=== PATIENT | female | born 1980 | race Caucasian/White ===

== ENCOUNTER 2020-08-06 10:38 | Emergency (ER) | payer OTHER, SELFPAY ==
[2020-08-06 10:58] VITALS: BP 131/80; PULSE 120; RESP 16; TEMP 36.5; O2SAT 98; BMI 27.8
--- NOTE | 2020-08-06 10:58 | ED_ITS ---
HPI - General Adult General Chief complaint: Eye Problems <Shellie Hunter NP - Last Filed: 08/06/20 11:05> Stated complaint: blurred vision,chest pain several weeks <Shellie Hunter NP - Last Filed: 08/06/20 11:05> Time Seen by Provider: 08/06/20 10:58 <Shellie Hunter NP - Last Filed: 08/06/20 11:05> Related Data Home medications: Previous Rx's Medication Instructions Recorded hydroxyzine HCl 50 mg PO TID PRN #14 tab 08/06/20 metoprolol succinate 12.5 mg PO DAILY #20 tab 08/06/20 <Shellie Hunter NP - Last Filed: 08/06/20 11:05> Allergies/adverse reactions: Allergies Allergy/AdvReac Type Severity Reaction Status Date / Time Iodinated Contrast Media AdvReac Mild ITCHINESS Unverified 04/19/20 15:32 [IV CONTRAST] AND HIVES; PREMEDICATE FUTURE SCANS <Shellie Hunter NP - Last Filed: 08/06/20 11:05> [facility] Past Medical History Medical History: Medical History CML (chronic myeloid leukemia) Migraine <Shellie Hunter NP - Last Filed: 08/06/20 11:05> Surgical History: Surgical History Hx of cholecystectomy <Shellie Hunter NP - Last Filed: 08/06/20 11:05> Social History Social History: Social History Alcohol intake: never Smoking Status: Never smoker <Shellie Hunter NP - Last Filed: 08/06/20 11:05> Physical Exam Vital Signs: Vital Signs: Last Vital Signs Temp 99.5 F 08/06/20 16:36 Pulse 126 H 08/06/20 16:36 Resp 18 08/06/20 16:36 BP 115/69 08/06/20 16:36 Pulse Ox 96 08/06/20 16:36 Body Mass Index 27.8 <Shellie Hunter NP - Last Filed: 08/06/20 11:05> Vital Signs: Last Vital Signs Temp 99.5 F 08/06/20 16:36 Pulse 126 H 08/06/20 16:36 Resp 18 08/06/20 16:36 BP 115/69 08/06/20 16:36 Pulse Ox 96 08/06/20 16:36 Body Mass Index 27.8 <Nancy Singh MD - Last Filed: 08/06/20 20:31> Course Course Course Narrative: 1059-This is a rapid medical exam. 40 yo female with past medical history of CML not on treatment woke up with left eye central eye blurriness. NO SHELDON. Last vision normal 430am. Left sided chest pain x 1 month, intermittent. No SOB, cough, dizziness. Also having anxiety, depression, no SI. Will check EKG, CXR. Deferred labs until seen by primary provider. Deferred additional HPI, ROS, and PE to primary provider. <Shellie Hunter NP - Last Filed: 08/06/20 11:05> I received sign-out from Dr. Anna. Patient remains tachycardic between 110 and 120 despite 3 L of fluid and 2 mg of Ativan. Patient is not anxious at this time. I discussed the patient an EKG with Dr. Booth, at this time he advised that we could go either way, start the patient on low-dose metoprolol versus having her follow-up with Cardiology and primary care physician. I discussed the above-mentioned with the patient, patient states that she is still having palpitations, a lot of anxiety, therefore, the patient I decided that we are going to go ahead and start her on low-dose metoprolol. Otherwise, patient is stable and asymptomatic <Nancy Singh MD - Last Filed: 08/06/20 20:31> Medical Decision Making Lab Data Result diagrams: : 08/06/20 15:14 08/06/20 15:14 <Shellie Hunter NP - Last Filed: 08/06/20 11:05> Labs: Lab Results 08/06/20 08/06/20 08/06/20 Range/Units 14:03 15:14 15:14 WBC 413.1 H* (4.8-10.8) X10*3/uL RBC 3.07 L (4.20-5.50) X10*6/uL Hgb 8.2 L (12.0-16.0) g/dl Hct 23.3 L (37-47) % MCV 75.9 L (80-98) fL MCH 26.7 L (27.0-33.0) pg MCHC 35.2 H (31.0-35.0) g/dl RDW 18.5 H (11.0-16.0) % Plt Count 407 H (160-400) X10*3/uL MPV 9.9 (9.4-12.3) fL Immature Gran % (Auto) Cancelled Neut % (Auto) Cancelled Lymph % (Auto) Cancelled Gooding % (Auto) Cancelled Eos % (Auto) Cancelled Baso % (Auto) Cancelled Lymph # (Auto) Cancelled Gooding # (Auto) Cancelled Eos # (Auto) Cancelled Baso # (Auto) Cancelled Abs Immat Gran (auto) Cancelled Absolute Neuts (auto) Cancelled Absolute Nucleated RBC 1.600 H (0.0-0.012) X10*3/uL Nucleated RBC % (auto) 0.4 H (0.0-0.2) /100WBC D-Dimer NG/ML Sodium (135-145) mmol/L Potassium (3.3-5.1) mmol/l Chloride (96-108) mmol/L Carbon Dioxide (22-29) mmol/L Anion Gap (12-20) BUN (9-16) mg/dL Creatinine (0.5-1.4) mg/dL Estim Creat Clear Calc Estimated GFR Random Glucose (60-115) mg/dL Calcium (8.4-10.2) mg/dL Total Bilirubin (0.0-1.0) mg/dL AST (5-31) U/L ALT (0-31) U/L Alkaline Phosphatase (39-117) U/L Troponin I High Sens (<3.5-17.0) ng/L Total Protein (6.5-8.0) g/dL Albumin (3.5-5.0) g/dL TSH (0.32-4.0) uIU/mL Beta HCG, Quant < 2 mIU/mL Urine Test NEGATIVE (NEGATIVE) 01/04/21 01/04/21 01/04/21 Range/Units 15:14 15:14 18:58 WBC (4.8-10.8) X10*3/uL RBC (4.20-5.50) X10*6/uL Hgb (12.0-16.0) g/dl Hct (37-47) % MCV (80-98) fL MCH (27.0-33.0) pg MCHC (31.0-35.0) g/dl RDW (11.0-16.0) % Plt Count (160-400) X10*3/uL MPV (9.4-12.3) fL Immature Gran % (Auto) Neut % (Auto) Lymph % (Auto) Gooding % (Auto) Eos % (Auto) Baso % (Auto) Lymph # (Auto) Gooding # (Auto) Eos # (Auto) Baso # (Auto) Abs Immat Gran (auto) Absolute Neuts (auto) Absolute Nucleated RBC (0.0-0.012) X10*3/uL Nucleated RBC % (auto) (0.0-0.2) /100WBC D-Dimer 209 NG/ML Sodium 137 (135-145) mmol/L Potassium 4.2 (3.3-5.1) mmol/l Chloride 101 (96-108) mmol/L Carbon Dioxide 28 (22-29) mmol/L Anion Gap 12 (12-20) BUN 7 L (9-16) mg/dL Creatinine 0.91 (0.5-1.4) mg/dL Estim Creat Clear Calc 76.2 Estimated GFR > 60 Random Glucose 92 (60-115) mg/dL Calcium 9.1 (8.4-10.2) mg/dL Total Bilirubin 0.3 (0.0-1.0) mg/dL AST 14 (5-31) U/L ALT 6 (0-31) U/L Alkaline Phosphatase 67 (39-117) U/L Troponin I High Sens < 3.5 (<3.5-17.0) ng/L Total Protein 6.7 (6.5-8.0) g/dL Albumin 4.1 (3.5-5.0) g/dL TSH 2.43 (0.32-4.0) uIU/mL Beta HCG, Quant mIU/mL Urine Test (NEGATIVE) <Shelliebryan Hunter, LOCK TENDER CHIEF OPERATOR - Last Filed: 08/06/20 11:05> Lab Results 08/06/20 08/06/20 08/06/20 Range/Units 14:03 15:14 15:14 WBC 413.1 H* (4.8-10.8) X10*3/uL RBC 3.07 L (4.20-5.50) X10*6/uL Hgb 8.2 L (12.0-16.0) g/dl Hct 23.3 L (37-47) % MCV 75.9 L (80-98) fL MCH 26.7 L (27.0-33.0) pg MCHC 35.2 H (31.0-35.0) g/dl RDW 18.5 H (11.0-16.0) % Plt Count 407 H (160-400) X10*3/uL MPV 9.9 (9.4-12.3) fL Immature Gran % (Auto) Cancelled Neut % (Auto) Cancelled Lymph % (Auto) Cancelled Gooding % (Auto) Cancelled Eos % (Auto) Cancelled Baso % (Auto) Cancelled Lymph # (Auto) Cancelled Gooding # (Auto) Cancelled Eos # (Auto) Cancelled Baso # (Auto) Cancelled Abs Immat Gran (auto) Cancelled Absolute Neuts (auto) Cancelled Absolute Nucleated RBC 1.600 H (0.0-0.012) X10*3/uL Nucleated RBC % (auto) 0.4 H (0.0-0.2) /100WBC D-Dimer NG/ML Sodium (135-145) mmol/L Potassium (3.3-5.1) mmol/l Chloride (96-108) mmol/L Carbon Dioxide (22-29) mmol/L Anion Gap (12-20) BUN (9-16) mg/dL Creatinine (0.5-1.4) mg/dL Estim Creat Clear Calc Estimated GFR Random Glucose (60-115) mg/dL Calcium (8.4-10.2) mg/dL Total Bilirubin (0.0-1.0) mg/dL AST (5-31) U/L ALT (0-31) U/L Alkaline Phosphatase (39-117) U/L Troponin I High Sens (<3.5-17.0) ng/L Total Protein (6.5-8.0) g/dL Albumin (3.5-5.0) g/dL TSH (0.32-4.0) uIU/mL Beta HCG, Quant < 2 mIU/mL Urine Test NEGATIVE (NEGATIVE) 08/06/20 08/06/20 08/06/20 Range/Units 15:14 15:14 18:58 WBC (4.8-10.8) X10*3/uL RBC (4.20-5.50) X10*6/uL Hgb (12.0-16.0) g/dl Hct (37-47) % MCV (80-98) fL MCH (27.0-33.0) pg MCHC (31.0-35.0) g/dl RDW (11.0-16.0) % Plt Count (160-400) X10*3/uL MPV (9.4-12.3) fL Immature Gran % (Auto) Neut % (Auto) Lymph % (Auto) Gooding % (Auto) Eos % (Auto) Baso % (Auto) Lymph # (Auto) Gooding # (Auto) Eos # (Auto) Baso # (Auto) Abs Immat Gran (auto) Absolute Neuts (auto) Absolute Nucleated RBC (0.0-0.012) X10*3/uL Nucleated RBC % (auto) (0.0-0.2) /100WBC D-Dimer 209 NG/ML Sodium 137 (135-145) mmol/L Potassium 4.2 (3.3-5.1) mmol/l Chloride 101 (96-108) mmol/L Carbon Dioxide 28 (22-29) mmol/L Anion Gap 12 (12-20) BUN 7 L (9-16) mg/dL Creatinine 0.91 (0.5-1.4) mg/dL Estim Creat Clear Calc 76.2 Estimated GFR > 60 Random Glucose 92 (60-115) mg/dL Calcium 9.1 (8.4-10.2) mg/dL Total Bilirubin 0.3 (0.0-1.0) mg/dL AST 14 (5-31) U/L ALT 6 (0-31) U/L Alkaline Phosphatase 67 (39-117) U/L Troponin I High Sens < 3.5 (<3.5-17.0) ng/L Total Protein 6.7 (6.5-8.0) g/dL Albumin 4.1 (3.5-5.0) g/dL TSH 2.43 (0.32-4.0) uIU/mL Beta HCG, Quant mIU/mL Urine Test (NEGATIVE) <Nancy Singh MD - Last Filed: 08/06/20 20:31> Discharge Plan Discharge Clinical Impression: Anxiety, Regular sinus tachycardia <Shellie Hunter NP - Last Filed: 08/06/20 11:05> Patient Disposition: Home, Self-Care <Shellie Hunter NP - Last Filed: 08/06/20 11:05> Instructions: Anxiety (ED), Tachycardia (ED) <Shellie Hunter NP - Last Filed: 08/06/20 11:05> Additional Instructions: Please follow-up with cardiology and with Dr. Zepeda as scheduled. Please follow-up with your primary care physician tomorrow. If you have any worsening or new symptoms, please return to the emergency room or call 911 <Shellie Hunter NP - Last Filed: 08/06/20 11:05> Prescriptions: New hydroxyzine HCl 50 mg tablet 50 mg PO TID PRN (Reason: nausea and vomiting) Qty: 14 RF: 0 metoprolol succinate 25 mg tablet extended release 24 hr 12.5 mg PO DAILY Qty: 20 RF: 0 <Shellie Hunter NP - Last Filed: 08/06/20 11:05> Referrals: Angel Booth MD [Physician] - 2 days <Shellie Hunter NP - Last Filed: 08/06/20 11:05> Stand Alone Forms: Work/School Release <Shellie Hunter NP - Last Filed: 08/06/20 11:05>
--- NOTE | 2020-08-06 11:05 | ECG_ITS ---
Test Reason : CP Blood Pressure : / mmHG Vent. Rate : 121 BPM Atrial Rate : 121 BPM P-R Int : 140 ms QRS Dur : 070 ms QT Int : 308 ms P-R-T Axes : 047 020 026 degrees QTc Int : 437 ms Sinus tachycardia Otherwise normal ECG No previous ECGs available Referred By: Shellie Hunter Electronically Signed By:Angel Booth
--- NOTE | 2020-08-06 11:05 | XR_ITS ---
EXAMINATION: XR CHEST CLINICAL INFORMATION: Chest pain. COMPARISON: None TECHNIQUE: 2 views of the chest were obtained. FINDINGS: The lungs are well-expanded and clear of acute process. There is punctate 3 mm nodule right lower lobe. The heart size and pulmonary vascularity is normal. No gross bony abnormality seen. XR/XR chest 2V IMPRESSION: Unremarkable chest examination.
[2020-08-06 14:11] LABS: UPreg QC Valid YES; Urine Pregnancy NEGATIVE (NEGATIVE)
--- NOTE | 2020-08-06 15:08 | ED.GENADULT ---
HPI - General Adult General Chief complaint: Eye Problems Stated complaint: blurred vision,chest pain several weeks Time Seen by Provider: 08/06/20 10:58 Source: patient Mode of arrival: ambulatory Limitations: no limitations History of Present Illness HPI narrative: This is a 40 years old female who presented to the ED with a chief complaint of chest pain for weeks and the left eye blurred vision. She does have a history of migraines headache is sometimes she gets problem with the left eye. She denies any fever chills shortness of breath chest pain is not radiated Onset (ago): week(s) Location: eyes (Left eye) and chest Radiation: non-radiation Severity: mild Pain Consistency: constant Exacerbating factors: none Related Data Allergies Allergy/AdvReac Type Severity Reaction Status Date / Time Iodinated Contrast Media AdvReac Mild ITCHINESS Unverified 04/19/20 15:32 [IV CONTRAST] AND HIVES; PREMEDICATE FUTURE SCANS Review of Systems Review of Systems: Yes all other systems are reviewed and are negative Eyes: Eyes: Reports as per HPI ENT: Reports system reviewed and no additional complaints, except as documented Respiratory: Respiratory: Reports no additional respiratory complaints Gastrointestinal: Gastrointestinal: Reports no additional gastrointestinal complaints Musculoskeletal: Musculoskeletal: Reports no additional musculoskeletal complaints PMFSH Past Medical History Medical History CML (chronic myeloid leukemia) Migraine Surgical History Hx of cholecystectomy Social History Social History Alcohol intake: never Smoking Status: Never smoker Physical Exam Vital Signs: Vital Signs: Last Vital Signs Temp 99.5 F 08/06/20 16:36 Pulse 126 H 08/06/20 16:36 Resp 18 08/06/20 16:36 BP 115/69 08/06/20 16:36 Pulse Ox 96 08/06/20 16:36 Body Mass Index 27.8 Const: General: cooperative and healthy appearing Orientation/consciousness: oriented to person, oriented to place, oriented to time and patient oriented x3 HENMT: Head: Yes normal to inspection and Yes No palpable skull fracture present Ears: hearing grossly normal bilaterally General nose exam: Normal external nose present Eyes: Other: Examination of the eye shows full extraocular movement of the pupils equal and reactive to light there is no nystagmus sclera is white conjunctiva pink General: appearance normal, both eyes and all related structures Neck: Neck: Yes normal visual inspection and Yes full ROM Chest: Chest palpation & inspection: normal inspection of the chest Resp: Effort & Inspection: normal respiratory effort and able to speak in complete sentences Cardio: Jugular venous distension: no JVD Rate: regular rate Rhythm: regular rhythm GI: Inspection: Yes normal to inspection Palpation (GI): Soft to palpation, nontender and no guarding Skin: General skin exam: no rashes or lesions noted Neuro: General: oriented to person, oriented to place, oriented to time, patient oriented x3 and gait normal Course Reevaluation(s) Reevaluation #1: Exam unchanged remain a little tachycardic, WBC noted I spoke with her die casting machine setter Dr. Zepeda patient does have a history of CLL , per Dr. Zepeda patient does not need admission or just because the white count she come follow-up with the patient as outpatient. Time: 16:20 Time: 16:38 Reevaluation #3: Signed off to Dr Singh,at the time of sign out pt still tachycardic rate 120, will get more IV fluids,will add TSH and D-Dimer. NO dischargeable yet because tachycardic,the chest pain is likely non cardiac ,the blurred vision in the left eye could be explained by aura (she get migraine often,she on Imitrex and eye blurriness is her carlos,I do not think is hyperviscosity because only 1 eye,I also discussed this with hematology Dr Zepeda unlikely hyperviscosity with CLL) Consultations Consultation #1: Dr. Zepeda hematology oncology regarding her white cell count in the setting of CLL,I raised the ? of hypeviscosity given elevated WBC but not concern with CLL per Dr Zepeda Medical Decision Making Lab Data Result diagrams: 08/06/20 15:14 08/06/20 15:14 Labs: Lab Results 08/06/20 08/06/20 08/06/20 Range/Units 14:03 15:14 15:14 WBC 413.1 H* (4.8-10.8) X10*3/uL RBC 3.07 L (4.20-5.50) X10*6/uL Hgb 8.2 L (12.0-16.0) g/dl Hct 23.3 L (37-47) % MCV 75.9 L (80-98) fL MCH 26.7 L (27.0-33.0) pg MCHC 35.2 H (31.0-35.0) g/dl RDW 18.5 H (11.0-16.0) % Plt Count 407 H (160-400) X10*3/uL MPV 9.9 (9.4-12.3) fL Immature Gran % (Auto) Cancelled Neut % (Auto) Cancelled Lymph % (Auto) Cancelled Clarke % (Auto) Cancelled Eos % (Auto) Cancelled Baso % (Auto) Cancelled Lymph # (Auto) Cancelled Clarke # (Auto) Cancelled Eos # (Auto) Cancelled Baso # (Auto) Cancelled Abs Immat Gran (auto) Cancelled Absolute Neuts (auto) Cancelled Absolute Nucleated RBC 1.600 H (0.0-0.012) X10*3/uL Nucleated RBC % (auto) 0.4 H (0.0-0.2) /100WBC D-Dimer NG/ML Sodium (135-145) mmol/L Potassium (3.3-5.1) mmol/l Chloride (96-108) mmol/L Carbon Dioxide (22-29) mmol/L Anion Gap (12-20) BUN (9-16) mg/dL Creatinine (0.5-1.4) mg/dL Estim Creat Clear Calc Estimated GFR Random Glucose (60-115) mg/dL Calcium (8.4-10.2) mg/dL Total Bilirubin (0.0-1.0) mg/dL AST (5-31) U/L ALT (0-31) U/L Alkaline Phosphatase (39-117) U/L Troponin I High Sens (<3.5-17.0) ng/L Total Protein (6.5-8.0) g/dL Albumin (3.5-5.0) g/dL TSH (0.32-4.0) uIU/mL Beta HCG, Quant < 2 mIU/mL Urine Test NEGATIVE (NEGATIVE) 08/06/20 08/06/20 08/06/20 Range/Units 15:14 15:14 18:58 WBC (4.8-10.8) X10*3/uL RBC (4.20-5.50) X10*6/uL Hgb (12.0-16.0) g/dl Hct (37-47) % MCV (80-98) fL MCH (27.0-33.0) pg MCHC (31.0-35.0) g/dl RDW (11.0-16.0) % Plt Count (160-400) X10*3/uL MPV (9.4-12.3) fL Immature Gran % (Auto) Neut % (Auto) Lymph % (Auto) Clarke % (Auto) Eos % (Auto) Baso % (Auto) Lymph # (Auto) Clarke # (Auto) Eos # (Auto) Baso # (Auto) Abs Immat Gran (auto) Absolute Neuts (auto) Absolute Nucleated RBC (0.0-0.012) X10*3/uL Nucleated RBC % (auto) (0.0-0.2) /100WBC D-Dimer 209 NG/ML Sodium 137 (135-145) mmol/L Potassium 4.2 (3.3-5.1) mmol/l Chloride 101 (96-108) mmol/L Carbon Dioxide 28 (22-29) mmol/L Anion Gap 12 (12-20) BUN 7 L (9-16) mg/dL Creatinine 0.91 (0.5-1.4) mg/dL Estim Creat Clear Calc 76.2 Estimated GFR > 60 Random Glucose 92 (60-115) mg/dL Calcium 9.1 (8.4-10.2) mg/dL Total Bilirubin 0.3 (0.0-1.0) mg/dL AST 14 (5-31) U/L ALT 6 (0-31) U/L Alkaline Phosphatase 67 (39-117) U/L Troponin I High Sens < 3.5 (<3.5-17.0) ng/L Total Protein 6.7 (6.5-8.0) g/dL Albumin 4.1 (3.5-5.0) g/dL TSH 2.43 (0.32-4.0) uIU/mL Beta HCG, Quant mIU/mL Urine Test (NEGATIVE) ECG Data Attestation: I personally reviewed and interpreted this ECG as follows: Pacemaker model: Normal sinus rhythm rate 120 ST-T segment isoelectric
[2020-08-06] MEDS: LORazepam 1 MG TABLET PO (15:20)
[2020-08-06] MEDS: 0.9 % Sodium Chloride 1,000 ML 999 ML IVCONT ×2 (15:24→16:40)
[2020-08-06 15:25] LABS: Hematocrit 23.3 % (37-47); Hemoglobin 8.2 g/dl (12.0-16.0); Mean Corpuscular HGB Conc 35.2 g/dl (31.0-35.0); Mean Corpuscular Hemoglobin 26.7 pg (27.0-33.0); Mean Corpuscular Volume 75.9 fL (80-98); Mean Platelet Volume 9.9 fL (9.4-12.3); NRBC Pct Auto 0.4 /100WBC (0.0-0.2); PLT CLUMP 1; Red Blood Count 3.07 X10*6/uL (4.20-5.50); Red Cell Distribution Width 18.5 % (11.0-16.0)
[2020-08-06 15:26] LABS: WBC ABN SCTR FOR CBC 1
[2020-08-06 15:42] LABS: Platelet Count 407 X10*3/uL (160-400)
[2020-08-06 15:49] LABS: White Blood Count 413.1 X10*3/uL (4.8-10.8)
[2020-08-06 15:57] LABS: Alanine Aminotransferase 6 U/L (0-31); Albumin Level 4.1 g/dL (3.5-5.0); Alkaline Phosphatase 67 U/L (39-117); Anion Gap 12 (12-20); Aspartate Amino Transferase 14 U/L (5-31); Bilirubin Total 0.3 mg/dL (0.0-1.0); Blood Urea Nitrogen 7 mg/dL (9-16); Calcium 9.1 mg/dL (8.4-10.2); Carbon Dioxide 28 mmol/L (22-29); Chloride 101 mmol/L (96-108); Creatinine Clr Calc Pharmacy 76.2; Estimated Glomerular Filt Rate > 60; Glucose Random 92 mg/dL (60-115); Potassium 4.2 mmol/l (3.3-5.1); Sodium 137 mmol/L (135-145); Total Protein 6.7 g/dL (6.5-8.0)
[2020-08-06 15:59] LABS: Troponin-I High Sensitivity < 3.5 ng/L (<3.5-17.0)
[2020-08-06 16:03] LABS: HCG Quantitative < 2 mIU/mL
[2020-08-06 16:36] VITALS: BP 115/69; PULSE 126; RESP 18; TEMP 37.5; O2SAT 96
[2020-08-06] MEDS: LORazepam 2 MG/ML VIAL 1 MG IVPUSH (16:40)
[2020-08-06 17:29] LABS: Thyroid Stimulating Hormone 2.43 uIU/mL (0.32-4.0)
[2020-08-06 19:19] LABS: D Dimer 209 NG/ML
[2020-08-06 23:27] LABS: Lactate Dehydrogenase 917 U/L (122-220)
[2020-08-08 12:03] LABS: Basophils Abs Manual 24.8 X10*3/uL (0.0-0.3); Basophils Percent Manual 6 % (0-1); Eosinophils Absolute Manual 20.7 X10*3/UL (0.0-0.8); Eosinophils Percent Manual 5 % (0-4); Lymphocytes Absolute Manual 8.3 X10*3/uL (0.6-4.8); Lymphocytes Percent Manual 2 % (20-40); Metamyelocytes Absolute 82.6 X10*3/uL; Metamyelocytes Percent 20 %; Myelocytes Absolute 20.7 X10*/uL; Myelocytes Percent 5 %; Neutrophils Percent Manual 43 % (45-73); Promyelocytes Absolute 8.3 X10*3/uL; Promyelocytes Percent 2 %
[2020-08-08 12:04] LABS: Band Neutrophils Percent 17 % (3-5); Blast Percent 0 %; Neutrophils Absolute Manual 247.9 X10*3/uL (2.2-7.9)
[2020-08-08 12:06] LABS: Platelet Estimate INCREASED (NORMAL); Platelet Morphology Comment NORMAL; Polychromasia 2+; RBC Morphology NOTED
[2020-08-08 12:07] LABS: Acanthocytes 1+; Microcytosis 1+; Ovalocytes 1+; Tear Drop Cells 1+
[2020-08-08 12:09] LABS: Stomatocytes 1+
[2020-08-08 12:10] LABS: Hypochromasia 1+; Target Cells 1+
[2020-08-08 12:11] LABS: Nucleated Red Blood Cells 1 /100WBC (0-0)
== END 2020-08-06 20:51 | disposition home or self-care (01) ==
PROVIDERS: Emergency Medicine; Nurse Practitioner Family; Emergency Provider Emergency Medicine; PCP Nurse Practitioner Family
DX: F41.9 Anxiety disorder, unspecified (principal); R00.0 Tachycardia, unspecified
CPT/HCPCS: 36415; 71046; 80053; 81025; 83615; 84443; 84484; 84702; 85007; 85027; 85060; 85379; 93005; 96361; 96374; 99284; J2060

== ENCOUNTER 2020-10-26 07:58 | Outpatient (REF) | payer OTHER, SELFPAY ==
--- NOTE | ~2020-10-26 | CT_ITS ---
EXAMINATION: CT ABDOMEN AND PELVIS WITH CONTRAST CLINICAL INFORMATION: Left adrenal nodule. COMPARISON: CT abdomen and pelvis with contrast 03/09/2017 TECHNIQUE: Multidetector volumetric images were obtained from the superior aspect of the liver through the pubic symphysis following administration 85 mL of Omnipaque 350 intravenous contrast. Sagittal and coronal reformatted images were obtained on the technologist's workstation. Oral contrast: No This CT examination was performed using dose optimization techniques as appropriate, variously including the following: *Automated exposure control *Adjustment of mA and/or kV according to patient size (this includes techniques or standardized protocols for targeted exams where dose is matched to indication/reason for exam; i.e. extremities or head) *Use of iterative reconstruction technique DLP: 505 mGy-cm FINDINGS: LUNG BASES: The visualized lung bases are unremarkable. LIVER, GALLBLADDER, AND BILIARY TREE: The liver is normal in size, shape, and attenuation. No focal hepatic lesion or biliary ductal dilatation is present. The gallbladder has been surgically removed. PANCREAS: Unremarkable. SPLEEN: There is mild hepatomegaly measuring 18 cm in length. ADRENAL GLANDS: There is a left adrenal nodule measuring 1.5 x 1.7 cm and 50 Hounsfield units, new since the last exam 03/09/2017. The right adrenal gland is unremarkable. KIDNEYS AND URETERS: The kidneys are normal in size, shape, and attenuation. No hydronephrosis, hydroureter, or calculi seen. No perinephric stranding. BLADDER: Unremarkable. GASTROINTESTINAL TRACT: There is moderate stool and gas seen throughout the colon the appendix is normal caliber. The small bowel loops are normal caliber. No free air or free fluid seen. ABDOMINAL WALL: No significant hernia is appreciated. LYMPH NODES: Normal. VASCULAR: Unremarkable. PELVIC VISCERA: The uterus is anteverted the small hypoechoic area in the cervix likely small nabothian cysts on sagittal image 55/7. OSSEOUS STRUCTURES: No lytic or sclerotic process seen CT/CT abdomen pelvis w con IMPRESSION: No acute intra-abdominal process seen. Moderate splenomegaly, new since previous study. Left adrenal nodule, new since previous study. Mild constipation.
== END 2020-10-26 07:59 | disposition home or self-care (01) ==
LOC: HO.CT 07:58
PROVIDERS: PCP Nurse Practitioner Family; Visit Provider Internal Medicine Medical Oncology
DX: C85.90 Non-Hodgkin lymphoma, unspecified, unspecified site (principal)
CPT/HCPCS: 74177; Q9967

== ENCOUNTER 2021-06-05 15:08 | Emergency (ER) | payer OTHER, SELFPAY ==
--- NOTE | 2021-06-05 | ECG_ITS ---
Test Reason : CHEST PAIN Blood Pressure : / mmHG Vent. Rate : 098 BPM Atrial Rate : 098 BPM P-R Int : 142 ms QRS Dur : 076 ms QT Int : 328 ms P-R-T Axes : 034 000 038 degrees QTc Int : 418 ms Normal sinus rhythm RSR' or QR pattern in V1 suggests right ventricular conduction delay Otherwise normal ECG Heart rate has decreased Referred By: Generic ED Physician Electronically Signed By:KELSEY UGARTE MD
[2021-06-05 15:34] VITALS: BP 145/84; PULSE 101; RESP 18; TEMP 36.6; O2SAT 100; BMI 35.3
--- NOTE | 2021-06-05 21:19 | ED.RECABL ---
HPI - Recheck/Abnormal Lab/Rx General Chief Complaint: Recheck/Abnormal Lab/Rx Stated Complaint: chest pain Time Seen by Provider: 06/05/21 21:03 Source: patient Mode of arrival: ambulatory Limitations: no limitations History of Present Illness HPI narrative: Patient with history of CML with chronic anemia had labs done earlier today at [facility] noticed to have hemoglobin of 7.2 hematocrit 20.5 platelet count 76 last hemoglobin was 7.8 patient became panicked after hearing the news and started having chest pain anxiety supposed to see mcat instructor tomorrow to get blood transfusion at this time patient is feeling fine does not want to have the blood drawn for type and screening denies any shortness of breath no chest pain Related Data Home Medications Medication Instructions Recorded Confirmed dasatinib 100 mg tablet (Sprycel) 100 mg PO DAILY 08/17/20 09/05/20 olanzapine 5 mg disintegrating 5 mg PO BEDTIME 08/17/20 09/05/20 tablet sertraline 50 mg tablet 50 mg PO DAILY 10/04/20 10/04/20 Previous Rx's Medication Instructions Recorded ondansetron HCl 4 mg tablet 8 mg PO Q8H #50 tab 08/21/20 (Zofran) hydroxyzine HCl 25 mg tablet 25 mg PO BID PRN 30 Days #60 tab 09/05/20 Allergies Allergy/AdvReac Type Severity Reaction Status Date / Time No Known Allergies Allergy Verified 05/31/21 16:48 Review of Systems Review of Systems: Yes all other systems are reviewed and are negative [facility] Past Medical History Medical History Adrenal nodule CML (chronic myeloid leukemia) Migraine Surgical History Hx of cholecystectomy Hx of dilation and curettage Family History Family History Paternal Grandmother Lung cancer Brain cancer Paternal Grandmother No problems noted. Social History Social History Alcohol intake: never Substance Use Type: Marijuana Advance Directives: No Advance Directives Information Provided: Yes Physical Exam Vital Signs: Vital Signs: Last Vital Signs Temp 98.6 F 06/05/21 21:42 Pulse 86 06/05/21 21:42 Resp 17 06/05/21 21:42 BP 129/71 06/05/21 21:42 Pulse Ox 100 06/05/21 21:42 Body Mass Index 35.3 Appearance: Alert. Oriented X3. No acute distress. Eyes: Pallor+ no bruising ENT: Pharynx normal. Oral Mucosa moist Neck: Normal inspection. Neck supple. CVS: Normal heart rate and rhythm. Pulses normal. Respiratory: No respiratory distress. Equal air entry bilateral, no wheezing/rales/rhonchi Abdomen: Soft and nontender. Bowel sounds are present, no mass palpable, no CVA tenderness Skin: Skin warm and dry. Normal skin color. Normal skin turgor. Extremities: No lower extremity edema. No calf tenderness Neuro: Oriented X 3. MDM - Recheck/Abnormal Lab/Rx MDM Narrative Medical decision making narrative: Patient has CML with chronic anemia and thrombocytopenia asymptomatic at this time , with stable vital, plan to have blood transfusion as outpatient tomorrow after evaluation by mcat instructor patient does not want type and screen done today will discharge patient home ECG Data Attestation: I personally reviewed and interpreted this ECG as follows: Interpretation: Normal sinus rhythm heart rate 98 beats per minute normal intervals normal axis no acute ischemia impression normal EKG Discharge Plan Discharge Clinical Impression: CML (chronic myelocytic leukemia), Anemia Patient Disposition: Home, Self-Care Instructions: Chronic Myeloid Leukemia (DC), Anemia (ED) Additional Instructions: Follow-up with your mcat instructor as planned tomorrow for blood transfusion Prescriptions: No Action olanzapine 5 mg Tablet,Disintegrating 5 mg PO BEDTIME RF: 0 Sprycel 100 mg Tablet 100 mg PO DAILY RF: 0 ondansetron HCl [Zofran] 4 mg Tablet 8 mg PO Q8H Qty: 50 RF: 3 sertraline 50 mg Tablet 50 mg PO DAILY RF: 0 hydroxyzine HCl 25 mg tablet 25 mg PO BID PRN (Reason: anxiety) 30 Days Qty: 60 RF: 0 Interventions: ED Discharge Assessment Last Done: 06/05/21 21:49 Discharge Date/Time: 06/05/21 21:54
[2021-06-05 21:42] VITALS: BP 129/71; PULSE 86; RESP 17; TEMP 37; O2SAT 100
== END 2021-06-05 21:54 | disposition home or self-care (01) ==
PROVIDERS: Emergency Provider Internal Medicine; PCP Nurse Practitioner Family
DX: D64.9 Anemia, unspecified (principal); D69.6 Thrombocytopenia, unspecified; C92.10 Chronic myeloid leukemia, BCR/ABL-positive, not having achieved remission
CPT/HCPCS: 93005; 99283; 99284

== ENCOUNTER → 2021-06-19 10:37 | Outpatient (BNVA) | payer OTHER, SELFPAY | PROVIDERS: PCP Nurse Practitioner Family; Referring Provider Internal Medicine Medical Oncology; Visit Provider Internal Medicine | DX: R06.02 Shortness of breath (principal); R00.2 Palpitations; R07.89 Other chest pain; C92.10 Chronic myeloid leukemia, BCR/ABL-positive, not having achieved remission | CPT/HCPCS: 99202 ==